=== PATIENT | male | born 1940 | race Caucasian/White ===

== ENCOUNTER 2017-01-06 14:00 | Inpatient (IN) | payer MEDICARE, OTHER ==
[~2017-01-06] VITALS: Ht 160 cm; Wt 92.1 kg
[~2017-01-06 14:00] MED LIST: ALDACTONE 25MG25 MG PO; ANTACID LIQUID355 ML PO; ASPIRIN EC325 MG PO; AUGMENTIN 500-1 EACH PO; BUMEX 1MG TABLET1 MG PO; CARDURA 2MG TAB2 MG PO; CORDARONE 200M200 MG PO; COUMADIN1 MG PO; COUMADIN2 MG PO; DIGOXIN125 MCG PO; ECOTRIN81 MG PO; FEOSOL325 MG PO; LACTULOSE20 GM/30 M PO; LASIX40 MG PO; LINZESS145 MCG PO; LOPRESSOR 50 MG50 MG PO; METOPROLOL TART50 MG PO; MIRALAX PACK 171 PKT PO; MULTIVITAMINS1 EAC1 PO; NEBUSAL4 ML INH; NIZORAL A-D200 ML TP; NORCO 5-325 TA1 EACH PO; PANTOPRAZOLE SO40 MG PO; PLAVIX 75 MG TA75 MG PO; PROTONIX40 MG PO; SUCRALFATE1 GM PO; TAMIFLU75 MG PO; TEGRETOL200 MG PO; TYLENOL 325MG325 MG PO; VOLTAREN100 GM TP; ZANTAC150 MG PO; ZESTRIL2.5 MG PO; ZOFRAN4 MG PO; [UNRECOGNIZED DRUG - OTHER] TP
[2017-01-06 15:25] LABS: HEMOGLOBIN 11.1 gm/dl (14.0-17.5); RED BLOOD COUNT 3.83 M/UL (4.20-5.50); WHITE BLOOD COUNT 25.1 K/UL (4.5-11.0)
[2017-01-06] MEDS ORDERED: LISINOPRIL5 MG PO (21:17)
[2017-01-06] MEDS ORDERED: FUROSEMIDE20 MG PO (21:18)
[2017-01-06] MEDS ORDERED: POTASSIUM CHLO10 MEQ PO (21:19)
[2017-01-06] MEDS ORDERED: BACTRIM DS TAB1 EACH PO (21:20)
[2017-01-06] MEDS ORDERED: CORDARONE 200M200 MG PO (21:21)
[2017-01-07 05:56] LABS: BUN/CREATININE RATIO 19 (0-10)
[2017-01-07 06:45] LABS: HEMOGLOBIN 9.2 gm/dl (14.0-17.5); RED BLOOD COUNT 3.18 M/UL (4.20-5.50); WHITE BLOOD COUNT 20.2 K/UL (4.5-11.0)
[2017-01-08 04:25] LABS: HEMOGLOBIN 9.9 gm/dl (14.0-17.5); RED BLOOD COUNT 3.41 M/UL (4.20-5.50)
[2017-01-08 04:28] LABS: WHITE BLOOD COUNT 13.5 K/UL (4.5-11.0)
[2017-01-08 04:53] LABS: BUN/CREATININE RATIO 18 (0-10)
[2017-01-09 05:31] LABS: HEMOGLOBIN 9.8 gm/dl (14.0-17.5); RED BLOOD COUNT 3.45 M/UL (4.20-5.50); WHITE BLOOD COUNT 10.8 K/UL (4.5-11.0)
[2017-01-09 06:00] LABS: BUN/CREATININE RATIO 20 (0-10)
[2017-01-10 05:18] LABS: HEMOGLOBIN 9.8 gm/dl (14.0-17.5); RED BLOOD COUNT 3.39 M/UL (4.20-5.50); WHITE BLOOD COUNT 11.4 K/UL (4.5-11.0)
[2017-01-10 05:34] LABS: BUN/CREATININE RATIO 17 (0-10)
== END 2017-01-10 15:20 | DRG 571 ==
LOC: ER1 14:00 → ZEROF 17:33 → M/S 19:41
PROVIDERS: Family Medicine; Physician Assistant; Surgery; ADMIT Internal Medicine
PROC: 0J973ZZ Drainage of Back Subcutaneous Tissue and Fascia, Percutaneous Approach (ICD-10-PCS; principal; 2017-01-06 21:31)
PROC: 0JB70ZZ Excision of Back Subcutaneous Tissue and Fascia, Open Approach (ICD-10-PCS; 2017-01-07)
DX: L02.212 Cutaneous abscess of back [any part, except buttock and flank] (principal); I42.9 Cardiomyopathy, unspecified; I13.0 Hypertensive heart and chronic kidney disease with heart failure and stage 1 through stage 4 chronic kidney disease, or unspecified chronic kidney disease; K44.0 Diaphragmatic hernia with obstruction, without gangrene; L03.312 Cellulitis of back [any part except buttock and flank]; L72.0 Epidermal cyst; I25.10 Atherosclerotic heart disease of native coronary artery without angina pectoris; G40.909 Epilepsy, unspecified, not intractable, without status epilepticus; Z95.1 Presence of aortocoronary bypass graft; Z98.890 Other specified postprocedural states; Z79.899 Other long term (current) drug therapy; Z80.8 Family history of malignant neoplasm of other organs or systems; I50.9 Heart failure, unspecified; N18.3 Chronic kidney disease, stage 3 (moderate); Z79.01 Long term (current) use of anticoagulants; E66.9 Obesity, unspecified; Z68.35 Body mass index [BMI] 35.0-35.9, adult; I48.91 Unspecified atrial fibrillation; Z93.1 Gastrostomy status; Z95.810 Presence of automatic (implantable) cardiac defibrillator; D72.829 Elevated white blood cell count, unspecified; Z88.8 Allergy status to other drugs, medicaments and biological substances; Z95.5 Presence of coronary angioplasty implant and graft; M54.5 Low back pain; Z82.49 Family history of ischemic heart disease and other diseases of the circulatory system
CPT/HCPCS: 36415; 80048; 80202; 85025; 85027; 85610; 85730; 87040; 87070; 87075; 87205; 96374; 96375; 99284; G0378; J1650; J2270; J2405; J2543; J3370; J7030; J7050; J7070; J7120

== ENCOUNTER 2017-01-18 18:17 | Emergency (ER) | payer MEDICARE, OTHER ==
[~2017-01-18 18:17] MED LIST changes: +BACTRIM DS TAB1 EACH PO; +FUROSEMIDE20 MG PO; +LISINOPRIL5 MG PO; +POTASSIUM CHLO10 MEQ PO
[2017-01-18 19:13] LABS: RED BLOOD COUNT 3.52 M/UL (4.20-5.50)
[2017-01-18 19:37] LABS: BUN/CREATININE RATIO 28 (0-10)
== END 2017-01-19 02:53 | disposition home or self-care (01) ==
LOC: ER1 18:17
PROVIDERS: Emergency Medicine
DX: R06.02 Shortness of breath (principal); I11.9 Hypertensive heart disease without heart failure; I50.9 Heart failure, unspecified; Z88.8 Allergy status to other drugs, medicaments and biological substances
CPT/HCPCS: 36415; 71010; 80053; 82550; 82553; 83874; 83880; 84443; 84484; 85025; 85379; 99285; J7050; Q9963

== ENCOUNTER → 2017-05-09 | Outpatient (CLI) | payer MEDICARE, OTHER | LOC: OPSV 14:42 | DX: K94.22 Gastrostomy infection (principal) ==